=== PATIENT | female | born 1960 | race Asian ===

== ENCOUNTER → 2017-01-28 | Day surgery (SDC) | payer BC ==
[~2017-01-28] MED LIST: BUPIVACAINE/EPINEPHRINE 0.5% PF 30 ML VIAL ONE; EPINEPHrine HCL (1:1000) 1 MG/ML VIAL ONE; EPINEPHrine HCL (1:1000) 1 MG/ML VIAL OTHER ONE; KETOROLAC TROMETHAMINE 30 MG/ML (IVP) VIAL IV PUSH ONE; LACTATED RINGER'S 1000 ML INJ 1,000 ML ONE; ONDANSETRON HCL 4 MG/2 ML VIAL IV PUSH ONE; PROPOFOL 100 MG/10 ML INJ IV ONE; TRIAMCINOLONE ACETONIDE 40 MG/ML VIAL ONE; ceFAZolin INJ 1,000 MG VIAL ONE
--- NOTE | 2017-01-28 14:46 | MP ---
cc: JUANCHO MCCLURE M.D. 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 SURGEON: Juancho Mcclure MD. DRIER AND EVAPORATOR OPERATOR: WAYNE Corrigan. DRIER AND EVAPORATOR OPERATOR WAYNE Douglas The surgical procedure was assisted by my Advanced Registered Nurse Practitioner. My SAP BUSINESS OBJECTS DEVELOPER presence was necessary throughout this case for the manipulation and positioning of the surgical extremity. My SAP BUSINESS OBJECTS DEVELOPER was assisting me throughout the duration of this procedure. The skill set of an Advance Registered Nurse Practitioner was medically necessary to complete this procedure. During the surgical case, the technical communication teacher was working at the back table and the Advance Registered Nurse Practitioner was directly assisting me. PROCEDURE Right knee arthroscopy with partial lateral meniscectomy COMPLICATIONS: Complications are none. TOURNIQUET TIME 0-minute PROCEDURE The patient brought back to operative theater. She received intravenous Ancef. The right lower extremity was prepped and draped in usual sterile fashion. We started with standard inferolateral portal followed by inferomedial portal under spinal needle visualization, there was moderate synovitis in the suprapatellar pouch there was grade 2 to grade 3 chondromalacia of the patella but no significant deep fissures were noted. There is grade 1 to grade 2 chondromalacia of the trochlea. There was some synovitis noted in the patellofemoral joint. The evaluation of the medial compartment showed diffuse grade 2 chondromalacia medial femoral condyle, medial meniscus had no discrete tear. The anterior cruciate ligament was mostly intact although on the very lateral aspect there was some frayed fibers there was some mild synovitis, lateral compartment showed extensive tearing of the lateral meniscus of the anterior horn with instability of the anterior horn. We used an oscillating shaver to perform partial lateral meniscectomy, debride the entire anterior horn and then going towards the midbody region. We probed this and this was stable. There was some chondromalacia lateral femoral condyle, grade 2 in nature. Overall we removed approximately 35% of the lateral meniscus. We made sure there was no loose bodies in the medial lateral gutter. The excess fluid was drained. We gave interarticular injection with 30 cc of 0.25% Marcaine with 40 mg of Kenalog. The portals were closed with 0 Vicryl followed by 3-0 nylon. Leg was dressed. Postop plan is weight bear as tolerated early range of motion. MD MONIE Diaz/riya /1:56 PM /2:26 PM
== END | disposition home or self-care (01) ==
LOC: ESDC 11:44
PROVIDERS: ATTEND Orthopaedic Surgery
DX: S83.281A Other tear of lateral meniscus, current injury, right knee, initial encounter (principal); M22.41 Chondromalacia patellae, right knee
CPT/HCPCS: 01400; 29881; J0171; J0690; J1885; J2405; J3010; J3301; J7120